=== PATIENT | male | born 1980 | race African-American/Black ===

== ENCOUNTER 2022-09-25 20:23 | Emergency (ER) | payer OTHER ==
[2022-09-25 20:35] VITALS: BP 117/78; PULSE 72; RESP 16; TEMP 97.6; BMI 26.4
== END 2022-09-25 22:00 | disposition home or self-care (01) ==
LOC: JER 20:23
DX: Z11.52 Encounter for screening for COVID-19 (principal)
CPT/HCPCS: 0241U-QW; 99283-25